=== PATIENT | male | born 1990 | race Caucasian/White ===

== ENCOUNTER 2019-08-18 16:22 | Emergency (ER) | payer SELFPAY ==
[2019-08-18] MEDS ORDERED: CEPHALEXIN 500 MG CAPSULE PO STA (16:40)
[2019-08-18] MEDS ORDERED: CLINDAMYCIN 150 MG CAP PO ONE (16:43)
--- NOTE | 2019-08-18 17:02 | Emergency Department Record ---
History of Present Illness - General Chief Complaint: Laceration(s) Stated Complaint: LACERATION ON FINGER Time Seen by Provider: 08/18/19 16:35 Source: Patient Mode of Arrival: Ambulatory Limitations: No limitations - History of Present Illness Initial Commments: The patient is here due to suffering a laceration to the R 4th finger 10 hours ago. He then went to work and did not get it sutured. The patient is having some numbness to the ulnar 1/2 of the distal R 4th finger palmar surface but there is no weakness with ROM. His Td is UTD. Onset/Timin -: Hour(s) Place: Home Context: Accidental, Sharp object use - [place] Coma Scale Eye Response: (4) Open spontaneously Motor Response: (6) Obeys commands Verbal Response: (5) Oriented [place] Total: 15 - Related Data Hx Tetanus Toxoid Vaccination: Yes Year of Tetanus Vaccination: 2014 Previous Rx's Medication Instructions Recorded Clindamycin HCl [Cleocin HCl] 300 mg PO TID #15 capsule 08/18/19 Allergies Allergy/AdvReac Type Severity Reaction Status Date / Time Penicillins Allergy HIVES Verified 08/18/19 16:47 Travel Screening - Travel/Exposure Within Last 30 Days Have you traveled within the last 30 days?: No - Travel/Exposure Within Last Year Have you traveled outside the [place] in the last year?: No - Additonal Travel Details Have you been exposed to anyone with a communicable illness?: No - Travel Symptoms Symptom Screening: None Review of Systems Constitutional: Denies: Chills, Fever Past Medical History - SOCIAL HISTORY Smoking Status: Current every day smoker Alcohol Use: None Drug Use: Occasional Drug Use Detail:: Marijuana - RESPIRATORY Hx Respiratory Disorders: No - CARDIOVASCULAR Hx Cardio Disorders: No - NEURO Hx Neuro Disorders: No - GI Hx GI Disorders: No - Hx Genitourinary Disorders: No - ENDOCRINE Hx Endocrine Disorders: No - MUSCULOSKELETAL Hx Musculoskeletal Disorders: No - PSYCH Hx Psych Problems: No - HEMATOLOGY/ONCOLOGY Hx Hematology/Oncology Disorders: No Family Medical History Any Significant Family History?: No Physical Exam - General General Appearance: Alert, Cooperative - Head Head exam: Atraumatic - Eye Eye exam: Normal appearance - Extremities Extremities exam: negative: Normal inspection (There is a 1.7 CM oblique lac to the palmar R 4th finger just proximal to the DIP joint. ) Image of Finger Tip: 1 - Area of Lac. - Neurological Neurological exam: Alert, Motor sensory deficit (There is numbness to the distal palmar 1/2 of the finger ulnar side. ) Course Vital Signs 08/18/19 08/18/19 16:33 16:40 Temperature 97.9 F 98.3 F Pulse Rate 91 H Pulse Rate [ 81 Right] Respiratory 20 16 Rate Blood Pressure 142/76 Blood Pressure 121/73 [Left Arm] Pulse Ox 100 97 - Reevaluation(s) Reevaluation #1: Procedure note: The L 4th finger was locally anesth. with 1 Cc [place]ido 1%. The wound was minimally debrided and lavaged extensively and cleansed with betadine. On exploration there was no tendon lac visualized. The lac was then not sutured due to the age of the wound. 08/18/19 17:02 Reevaluation #2: I did discuss the need to return to the ER in 2 days for recheck and suturing if the lac is not infected. The patient understands. I also did discuss the need to see a hand surgeon due to the presumed digital nerve lac. The patient is from [facility] and elected to NOT be referred to the surgeon that helps us out in [place] and will find a hand surgeon in [place]. 08/18/19 17:03 Disposition Disposition: Discharge Clinical Impression: Finger laceration with complication Qualifiers: Encounter type: initial encounter Qualified Code(s): S61.219A - Laceration without foreign body of unspecified finger without damage to nail, initial encounter Disposition: Home, Self-Care Condition: (2) Stable Instructions: Laceration (ED) Additional Instructions: Keep dry for 2 days. Return in 2 days for recheck and suturing if not infected. Take the Clindamycin as directed and use Tylenol or Motrin for pain. Prescriptions: Clindamycin HCl [Cleocin HCl] 300 mg PO TID #15 capsule Forms: Patient Portal Access Time of Disposition: 17:06 Quality - Quality Measures Quality Measures: N/A - Blood Pressure Screening View Details: Yes Does Patient Have Any of the Following: No Blood Pressure Classification: Hypertensive Reading Systolic Measurement: 142 Diastolic Measurement: 76 Screening for High Blood Pressure: < First Hypertensive BP, F/U Documented > [G8950] First Hypertensive Follow-up Interventions: Referral to alternative/primary care provider.
== END 2019-08-18 17:17 | disposition home or self-care (01) ==
LOC: ER 16:22
DX: S61.219A Laceration without foreign body of unspecified finger without damage to nail, initial encounter (principal); W26.0XXA Contact with knife, initial encounter; Y92.019 Unspecified place in single-family (private) house as the place of occurrence of the external cause; F17.210 Nicotine dependence, cigarettes, uncomplicated
CPT/HCPCS: 11042; 99283

== ENCOUNTER 2019-08-21 15:39 | Emergency (ER) | payer BC ==
--- NOTE | 2019-08-21 17:18 | Emergency Department Record ---
History of Present Illness - General Chief Complaint: Recheck - Other Stated Complaint: RT RING LAC Time Seen by Provider: 08/21/19 17:01 Source: Patient Mode of arrival: Ambulatory Limitations: No limitations - History of Present Illness Initial Comments: 28 yo male returns to ED for evaluation and laceration closure of the right ring finger following laceration 3 days ago. Patient reports that he was seen and evaluated 6 hours following injury, the provider at that time elected to start antibiotics and have the patient return in 48 hours for delayed closure. Patient denies fevers, chills, or redness from the wound. Patient denies discharge from the wound as well. Patient reports normal flexion of the finger following injury, tetanus is UTD. MD Complaint: Wound re-check Onset/Timin -: Days(s) Initial Visit For: Laceration Returns Today for: Wound recheck Symptoms Since Prior Visit: No new symptoms Associated Symptoms: None - Related Data Previous Rx's Medication Instructions Recorded Clindamycin HCl [Cleocin HCl] 300 mg PO TID #15 capsule 08/18/19 Allergies Allergy/AdvReac Type Severity Reaction Status Date / Time Penicillins Allergy HIVES Verified 08/18/19 16:47 Travel Screening - Travel/Exposure Within Last 30 Days Have you traveled within the last 30 days?: No Review of Systems Constitutional: Denies: Chills, Fever, Malaise, Night sweats Eyes: Denies: Eye discharge, Eye pain ENT: Denies: Congestion, Ear pain, Epistaxis Respiratory: Denies: Cough, Dyspnea Cardiovascular: Denies: Chest pain, Dyspnea on exertion Endocrine: Denies: Fatigue, Heat or cold intolerance Gastrointestinal: Denies: Abdominal pain, Nausea, Vomiting Genitourinary: Denies: Incontinence, Retention Musculoskeletal: Denies: Arthralgia, Back pain, Gout, Joint swelling Skin: Reports: Other (Finger laceration 3 days ago). Denies: Bruising, Change in color Neurological: Denies: Abnormal gait, Confusion, Headache, Tingling, Tremors Psychiatric: Denies: Anxiety Hematological/Lymphatic: Denies: Anemia, Blood Clots Past Medical History - SOCIAL HISTORY Smoking Status: Current every day smoker - RESPIRATORY Hx Respiratory Disorders: No - CARDIOVASCULAR Hx Cardio Disorders: No - NEURO Hx Neuro Disorders: No - GI Hx GI Disorders: No - Hx Genitourinary Disorders: No - ENDOCRINE Hx Endocrine Disorders: No - MUSCULOSKELETAL Hx Musculoskeletal Disorders: No - PSYCH Hx Psych Problems: No - HEMATOLOGY/ONCOLOGY Hx Hematology/Oncology Disorders: No Family Medical History Any Significant Family History?: No Physical Exam - General General Appearance: Alert, Oriented x3, Cooperative, No acute distress Limitations: No limitations - Head Head exam: Atraumatic, Normocephalic, Normal inspection Head exam detail: negative: Abrasion, Contusion, Maradiaga's sign, General tenderness, Hematoma, Laceration - Eye Eye exam: Normal appearance. negative: Conjunctival injection, Periorbital swelling, Periorbital tenderness, Scleral icterus - ENT Ear exam: negative: Auricular hematoma, Auricular trauma Nasal Exam: negative: Active bleeding, Discharge, Dried blood, Foreign body Mouth exam: negative: Drooling, Laceration, Muffled voice, Tongue elevation - Neck Neck exam: Normal inspection. negative: Meningismus, Tenderness - Respiratory Respiratory exam: Normal lung sounds bilaterally. negative: Respiratory distress, Rhonchi, Stridor, Wheezes - Cardiovascular Cardiovascular Exam: Regular rate, Normal rhythm, Normal heart sounds - GI/Abdominal GI/Abdominal exam: Soft. negative: Distended, Rebound, Rigid, Tenderness - Rectal Rectal exam: Deferred - exam: Deferred - Extremities Extremities exam: Tenderness, Other (2.0 cm laceration overlying tghe PIP of the flexor surface of the right ring finger on exmaination, no ertyhema, no clinical evidence for infection at this time.). negative: Calf tenderness, Pedal edema - Back Back exam: Denies: CVA tenderness (R), CVA tenderness (L) - Neurological Neurological exam: Alert, Normal gait, Oriented X3 - Psychiatric Psychiatric exam: Normal affect, Normal mood - Skin Skin exam: Normal color. negative: Abrasion Type of lesion: negative: abrasion Course Vital Signs 08/21/19 17:10 Temperature 98.7 F Pulse Rate 70 Respiratory 20 Rate Blood Pressure 127/77 Pulse Ox 99 - Reevaluation(s) Reevaluation #1: 08/21/19 17:44 Procedure Note: Following anesthetization of the laceration, attempted to close the wound withou t success as the sutures are tearing through the soft dermal tissue on either side of the laceration. Will apply steri-strips and refer the patient for delayed closure. Patient was instructed to call Dr. Calderon tomorrow for a follow-up appointment and further evaluation. 08/21/19 19:10 PM Case was reviewed with Dr. Calderon, will instruct the patient to continue Clindamycin as directed with instructions to call the office tomorrow for a follow-up appointment. Disposition Disposition: Discharge Clinical Impression: Finger laceration with complication Qualifiers: Encounter type: initial encounter Qualified Code(s): S61.219A - Laceration without foreign body of unspecified finger without damage to nail, initial encounter Disposition: Home, Self-Care Condition: (2) Stable Instructions: Care For Your Stitches (ED) Additional Instructions: Return to ED if your symptoms worsen or if you have any concerns. Continue Clindamycin as previously prescribed. Follow-up with Dr. Calderon in 1-3 days as directed for re-evaluation. Referrals: KENNY CALDERON M.D. [MEDICAL DOCTOR] - Forms: Patient Portal Access Time of Disposition: 17:48 Quality - Quality Measures Quality Measures: N/A - Blood Pressure Screening Does Patient Have Any of the Following: No Blood Pressure Classification: Pre-Hypertensive BP Reading Systolic Measurement: 127 Diastolic Measurement: 77 Screening for High Blood Pressure: < Pre-Hypertensive BP, F/U Documented > [G8950] Pre-Hypertensive Follow-up Interventions: Referral to alternative/primary care provider.
== END 2019-08-21 18:15 | disposition home or self-care (01) ==
LOC: ER 15:39
DX: S61.214D Laceration without foreign body of right ring finger without damage to nail, subsequent encounter (principal); W26.0XXD Contact with knife, subsequent encounter; F17.210 Nicotine dependence, cigarettes, uncomplicated; Y92.019 Unspecified place in single-family (private) house as the place of occurrence of the external cause
CPT/HCPCS: 99283